=== PATIENT | male | born 1995 | race Hispanic/Latino ===

== ENCOUNTER 2017-09-11 18:29 | Emergency (ER) | payer SELFPAY ==
[2017-09-11 20:45] LABS: Urine Blood TRACE (NEG); Urine Glucose NEGATIVE (NEG); Urine Protein 1+ (NEG); Urine Specific Gravity >1.030 (1.005-1.030)
[2017-09-11 21:43] LABS: Absolute Lymphocytes (CBC) 1.7 K/uL (0.7-4.9); Basophils % 0.7 % (0-1.3); Eosinophils % 1.9 % (0-4.4); Hematocrit 42.6 % (39.6-49.0); Lymphocytes % 24.8 % (15.3-44.8); MCV 87.6 fL (80-100); MPV 8.6 fL (7.6-11.3); Monocytes % 14.8 % (3.3-12.3); RBC Red Blood Cell Count 4.86 M/uL (4.33-5.43)
[2017-09-11] MEDS ORDERED: NA CHLORIDE 0.9% 1,000 ML ONE (21:48)
[2017-09-11 21:51] LABS: Potassium 3.5 mEq/L (3.6-5.0)
[2017-09-11 21:57] LABS: Bilirubin Direct 0.1 mg/dL (0-0.2); Bilirubin Total 0.9 mg/dL (0.3-1.2); Protein, Total 7.7 g/dL (6.0-8.3)
--- NOTE | 2017-09-11 23:02 | ER ---
Nurse's Notes [facility] Name: Fracisco Villegas Age: 22 yrs Sex: Male : 1995 Arrival Date: 09/11/2017 Time: 18:30 Bed 13 Private MD: None, None Diagnosis: Vomiting;Diarrhea, unspecified Presentation: 09/11 19:10 Presenting complaint: Patient states: that he is having pain all over along with fc vomiting. Started yesterday. Also having diarrhea. Transition of care: patient was not received from another setting of care. Onset of symptoms was September 10, 2017. Care prior to arrival: None. 19:10 Method Of Arrival: Ambulatory fc 19:10 Acuity: ANDREZ 3 fc Triage Assessment: 19:13 General: Appears uncomfortable, Behavior is calm, cooperative, appropriate for age. fc Pain: Complains of pain in all over Pain currently is 8 out of 10 on a pain scale. Quality of pain is described as aching, Pain began 1 day ago. Is continuous. EENT: No deficits noted. Neuro: Level of Consciousness is awake, alert, obeys commands, Oriented to person, place, time, situation. Cardiovascular: No deficits noted. Respiratory: No deficits noted. GI: Reports lower abdominal pain, upper abdominal pain, diarrhea, nausea, vomiting. : No deficits noted. Derm: Skin is pink, warm \\T\\ dry. Musculoskeletal: Circulation, motion, and sensation intact. Capillary refill < 3 seconds, Range of motion: intact in all extremities. Historical: - Allergies: 19:12 No Known Allergies; fc - Home Meds: 19:12 None [Active]; fc - PMHx: 19:12 None; fc - PSHx: 19:12 None; fc - Immunization history:: Last tetanus immunization: unknown. - Social history:: Smoking status: Patient/guardian denies using tobacco, Patient/guardian denies using alcohol. Screenin:11 Abuse screen: Denies threats or abuse. Nutritional screening: No deficits noted. kb1 Tuberculosis screening: No symptoms or risk factors identified. Fall Risk None identified. Assessment: 21:11 General: Appears in no apparent distress. Pain: Complains of pain in "all over". Neuro: kb1 Level of Consciousness is awake, alert, obeys commands. Cardiovascular: Patient's skin is warm and dry. Respiratory: Respiratory effort is even, unlabored, Respiratory pattern is regular, symmetrical. GI: Abdomen is round non-distended, Reports Family states Pt has been having nausea and vomiting since yesterday. Has vomited approximately 3 times. : No signs and/or symptoms were reported regarding the genitourinary system. 22:10 Reassessment: Patient appears in no apparent distress at this time. Patient and/or kb1 family updated on plan of care and expected duration. Pain level reassessed. Patient is alert, oriented x 3, equal unlabored respirations, skin warm/dry/pink. 22:52 Reassessment: Patient appears in no apparent distress at this time. Patient and/or kb1 family updated on plan of care and expected duration. Pain level reassessed. Patient is alert, oriented x 3, equal unlabored respirations, skin warm/dry/pink. given carmel mist for PO challenge. Vital Signs: 19:12 BP 146 / 101; Pulse 77; Resp 18; Temp 97.2(O); Pulse Ox 97% on R/A; Weight 83.91 kg fc (R); Height 5 ft. 4 in. (162.56 cm) (R); Pain 8/10; 21:42 BP 137 / 90; Pulse 81; Resp 18; Pulse Ox 98% ; kb1 22:52 BP 109 / 67; Pulse 76; Resp 18; Pulse Ox 99% ; kb1 19:12 Body Mass Index 31.75 (83.91 kg, 162.56 cm) fc ED Course: 18:30 Patient arrived in ED. mr 18:30 None, None is Private Physician. mr 19:12 Triage completed. fc 19:12 Arm band placed on left wrist. Patient placed in waiting room, Patient notified of wait fc time. 20:14 Sandra Barron, MCKINLEY is Primary Nurse. kb1 20:15 Rayo Keith NP is PHCP. pm1 20:15 Zackary Ramirez MD is Attending Physician. pm1 21:11 Patient has correct armband on for positive identification. kb1 21:42 No provider procedures requiring assistance completed. Inserted saline lock: 20 gauge kb1 in right antecubital area, using aseptic technique. Blood collected. 23:10 IV discontinued, intact, bleeding controlled, No redness/swelling at site. Pressure kb1 dressing applied. Administered Medications: 21:45 Drug: NS 0.9% 1000 ml Route: IV; Rate: 1000 ml; Site: right antecubital; kb1 22:51 Follow up: IV Status: Completed infusion kb1 22:51 Drug: Zofran 4 mg Route: IVP; Site: right antecubital; kb1 23:19 Follow up: Response: Nausea is decreased kb1 Outcome: 23:01 Discharge ordered by MD. pm1 23:18 Discharged to home ambulatory, with family. kb1 23:18 Condition: stable 23:18 Discharge instructions given to patient, family, Instructed on discharge instructions, follow up and referral plans. medication usage, Demonstrated understanding of instructions, follow-up care, medications, Prescriptions given X 1. 23:20 Patient left the ED. kb1 Signatures: Debra Villegas Felicia, RN RN Rayo Bunch NP [employer] pm1 Sandra Barron RN RN kb1
--- NOTE | 2017-09-11 23:02 | EDPHYS ---
Physician Documentation [facility] Name: Fracisco Villegas Age: 22 yrs Sex: Male : 1995 Arrival Date: 09/11/2017 Time: 18:30 Bed 13 Private MD: None, None ED Physician Zackary Ramirez HPI: 09/12 00:00 This 22 yrs old Male presents to ER via Ambulatory with complaints of Vomiting.pm1 00:00 The patient presents to the emergency department with nausea, vomiting, diarrhea. pm1 Onset: The symptoms/episode began/occurred yesterday. Possible causes: unknown. The symptoms are aggravated by food , The symptoms are alleviated by nothing. Associated signs and symptoms: Pertinent positives: fever, Pertinent negatives: abdominal pain, dysuria. Severity of symptoms: in the emergency department the symptoms are unchanged. The patient has not recently seen a physician, and does not have an established primary care provider. Historical: - Allergies: 09/11 19:12 No Known Allergies; fc - Home Meds: 19:12 None [Active]; fc - PMHx: 19:12 None; fc - PSHx: 19:12 None; fc - Immunization history:: Last tetanus immunization: unknown. - Social history:: Smoking status: Patient/guardian denies using tobacco, Patient/guardian denies using alcohol. ROS: 09/12 00:00 Constitutional: Negative for fever, chills, and weight loss, Eyes: Negative for injury, pm1 pain, redness, and discharge, ENT: Negative for injury, pain, and discharge, Neck: Negative for injury, pain, and swelling, Cardiovascular: Negative for chest pain, palpitations, and edema, Respiratory: Negative for shortness of breath, cough, wheezing, and pleuritic chest pain. 00:00 Back: Negative for injury and pain, : Negative for injury, bleeding, discharge, and pm1 swelling, MS/Extremity: Negative for injury and deformity, Skin: Negative for injury, rash, and discoloration, Neuro: Negative for headache, weakness, numbness, tingling, and seizure. 00:00 Abdomen/GI: Positive for nausea, vomiting, diarrhea, Negative for abdominal pain. Exam: 00:00 Constitutional: This is a well developed, well nourished patient who is awake, alert, pm1 and in no acute distress. Head/Face: Normocephalic, atraumatic. Eyes: Pupils equal round and reactive to light, extra-ocular motions intact. Lids and lashes normal. Conjunctiva and sclera are non-icteric and not injected. Cornea within normal limits. Periorbital areas with no swelling, redness, or edema. ENT: Nares patent. No nasal discharge, no septal abnormalities noted. Tympanic membranes are normal and external auditory canals are clear. Oropharynx with no redness, swelling, or masses, exudates, or evidence of obstruction, uvula midline. Mucous membranes moist. Neck: Trachea midline, no thyromegaly or masses palpated, and no cervical lymphadenopathy. Supple, full range of motion without nuchal rigidity, or vertebral point tenderness. No Meningismus. Chest/axilla: Normal chest wall appearance and motion. Nontender with no deformity. No lesions are appreciated. Cardiovascular: Regular rate and rhythm with a normal S1 and S2. No gallops, murmurs, or rubs. Normal PMI, no JVD. No pulse deficits. Respiratory: Lungs have equal breath sounds bilaterally, clear to auscultation and percussion. No rales, rhonchi or wheezes noted. No increased work of breathing, no retractions or nasal flaring. Abdomen/GI: Soft, non-tender, with normal bowel sounds. No distension or tympany. No guarding or rebound. No evidence of tenderness throughout. Back: No spinal tenderness. No costovertebral tenderness. Full range of motion. Skin: Warm, dry with normal turgor. Normal color with no rashes, no lesions, and no evidence of cellulitis. MS/ Extremity: Pulses equal, no cyanosis. Neurovascular intact. Full, normal range of motion. 00:00 Neuro: Orientation: is normal, Motor: moves all fours, Gait: is steady, at a normal pace, without difficulty. Vital Signs: 09/11 19:12 BP 146 / 101; Pulse 77; Resp 18; Temp 97.2(O); Pulse Ox 97% on R/A; Weight 83.91 kg fc (R); Height 5 ft. 4 in. (162.56 cm) (R); Pain 8/10; 21:42 BP 137 / 90; Pulse 81; Resp 18; Pulse Ox 98% ; kb1 22:52 BP 109 / 67; Pulse 76; Resp 18; Pulse Ox 99% ; kb1 19:12 Body Mass Index 31.75 (83.91 kg, 162.56 cm) fc MDM: 20:17 Patient medically screened. pm1 23:01 Data reviewed: vital signs. Data interpreted: Pulse oximetry: on room air is 99 %. pm1 Interpretation: normal. Counseling: I had a detailed discussion with the patient and/or guardian regarding: the historical points, exam findings, and any diagnostic results supporting the discharge/admit diagnosis, lab results, the need for outpatient follow up, to return to the emergency department if symptoms worsen or persist or if there are any questions or concerns that arise at home. 09/11 20:14 Order name: Urine Dipstick--Ancillary (enter results); Complete Time: 20:51 rg2 09/11 21:04 Order name: Basic Metabolic Panel; Complete Time: 22:38 pm1 09/11 21:04 Order name: CBC with Diff; Complete Time: 22:38 pm1 09/11 21:04 Order name: Hepatic Function; Complete Time: 22:38 pm1 09/11 21:04 Order name: Lipase; Complete Time: 22:38 pm1 09/11 21:04 Order name: IV Saline Lock; Complete Time: 21:43 pm1 09/11 21:04 Order name: Labs collected and sent; Complete Time: 21:43 pm1 09/11 21:04 Order name: Urine Dipstick-Ancillary (obtain specimen); Complete Time: 21:43 pm1 09/11 22:39 Order name: PO challenge; Complete Time: 22:51 pm1 Administered Medications: 21:45 Drug: NS 0.9% 1000 ml Route: IV; Rate: 1000 ml; Site: right antecubital; kb1 22:51 Follow up: IV Status: Completed infusion kb1 22:51 Drug: Zofran 4 mg Route: IVP; Site: right antecubital; kb1 23:19 Follow up: Response: Nausea is decreased kb1 Disposition: 09/12 00:23 Co-signature as Attending Physician, Zackary Ramirez MD. pkl Disposition: 09/11/17 23:01 Discharged to Home. Impression: Vomiting, Diarrhea, unspecified. - Condition is Stable. - Discharge Instructions: Food Choices to Help Relieve Diarrhea, Adult, Diarrhea, Nausea and Vomiting, Viral Gastroenteritis. - Prescriptions for Zofran 4 mg Oral Tablet - take 1 tablet by ORAL route every 8 hours As needed; 20 tablet. - Medication Reconciliation Form, Thank You Letter, Antibiotic Education, Work release form form. - Follow up: Emergency Department; When: As needed; Reason: Worsening of condition. Follow up: Private Physician; When: 2 - 3 days; Reason: Recheck today's complaints, Continuance of care, Re-evaluation by your physician. - Problem is new. - Symptoms have improved. Signatures: Dispatcher [employer] Zackary Estrada MD MD pkl Chretien, Felicia RN RN fc Rayo Keith NP [employer] pm1 Sandra Barron RN RN kb1
[2017-09-11] MEDS ORDERED: ONDANSETRON 4 MG/2 ML VIAL ONE (23:03)
== END 2017-09-11 23:20 | disposition home or self-care (01) ==
LOC: ER 18:29
DX: R19.7 Diarrhea, unspecified (principal)
CPT/HCPCS: 36415; 80048; 80076; 81003; 83690; 85025; 96361; 96374; 99284; J2405; J7030